=== PATIENT | female | born 1965 | race Caucasian/White ===

== ENCOUNTER 2019-03-14 19:20 | Emergency (ER) | payer OTHER ==
[~2019-03-14] VITALS: Ht 160 cm; Wt 70.3 kg
[2019-03-14 20:00] VITALS: BP 140/81; Ht 160 cm; Wt 70.3 kg
== END 2019-03-14 20:59 | disposition home or self-care (01) ==
LOC: ED 19:20
DX: J40 Bronchitis, not specified as acute or chronic (principal); I10 Essential (primary) hypertension

== ENCOUNTER 2019-12-17 01:00 | Inpatient (IN) | payer OTHER ==
[~2019-12-17] VITALS: Ht 154.9 cm; Wt 64.5 kg
[2019-12-17 01:10] VITALS: Ht 154.9 cm; Wt 64.5 kg
[2019-12-17 02:18] LABS: BILIRUBIN TOTAL 0.23 mg/dL (0.20-1.00); CALCIUM 8.4 mg/dL (8.5-10.1); CARBON DIOXIDE 22.7 mmol/L (21-32); FREE T4 0.75 ng/dL (0.76-1.46); MAGNESIUM 1.8 mg/dL (1.8-2.4); TOTAL PROTEIN, SERUM 7.2 g/dL (6.4-8.2)
[2019-12-17 02:19] LABS: ALBUMIN 3.1 g/dL (3.4-5.0)
[2019-12-17 02:24] LABS: BASOPHIL % 0.9 % (0-2); PLATELET COUNT 228 x10^3mcL (130-400); RED CELL DISTRIBUTION WIDTH 14.5 % (11.5-14.5)
[2019-12-17] MEDS ORDERED: GLIPIZIDE XL2.5 M1 (03:37)
[2019-12-17] MEDS ORDERED: MEDI-FIRST ASP325 MG (03:37)
[2019-12-17] MEDS ORDERED: ADALAT CC90 MG (03:39)
[2019-12-17] MEDS ORDERED: METOPROLOL SUCC50 M2 (03:39)
[2019-12-17] MEDS ORDERED: COZ50 (03:40)
[2019-12-17] MEDS ORDERED: FISH OIL CONC1000 M1 (03:42)
[2019-12-17] MEDS ORDERED: LIPOFEN150 MG (03:42)
[2019-12-17] MEDS ORDERED: HUMULIN R100 U/1 M1 SC (03:47)
[2019-12-17 04:32] VITALS: BP 144/75
[2019-12-17 06:06] LABS: microscopic required? YES; urine erythrocyte 1+ (NEGATIVE)
[2019-12-17 08:22] VITALS: BP 151/88
[2019-12-17 14:03] VITALS: BP 152/80
[2019-12-17 16:04] VITALS: BP 164/74
[2019-12-17 17:10] VITALS: BP 150/82
[2019-12-17 20:53] VITALS: BP 167/82
[2019-12-18] VITALS (7 sets, daily range): BP systolic 124–190; BP diastolic 72–90
[2019-12-18 06:50] LABS: BASOPHIL % 1.3 % (0-2); PLATELET COUNT 195 x10^3mcL (130-400)
[2019-12-18 06:53] LABS: CALCIUM 8.4 mg/dL (8.5-10.1); CARBON DIOXIDE 22.3 mmol/L (21-32); MAGNESIUM 1.8 mg/dL (1.8-2.4); PHOSPHOROUS 4.7 mg/dL (2.5-4.9); POTASSIUM SERUM 4.9 mmol/L (3.5-5.1)
[2019-12-18 06:54] LABS: CHOLESTEROL/HDL RATIO 5.1; CREATININE SERUM 4.5 mg/dL (0.6-1.0)
[2019-12-18 07:06] LABS: RED CELL DISTRIBUTION WIDTH 14.7 % (11.5-14.5)
[2019-12-18 07:28] LABS: IRON 67 ug/dL (50-170)
[2019-12-18 07:32] LABS: TOTAL IRON BINDING CAPACITY 236 ug/dL (250-450)
[2019-12-18] MEDS ORDERED: SYN5 PO (12:06)
[2019-12-18] MEDS ORDERED: LEVO-T50 MCG PO (18:02)
== END 2019-12-18 19:15 | disposition home or self-care (01) | DRG 199 ==
LOC: ED 01:00 → DU 03:10
PROVIDERS: Emergency Medicine; Internal Medicine; ADMIT Internal Medicine; ATTEND Internal Medicine
DX: I16.0 Hypertensive urgency (principal); N17.9 Acute kidney failure, unspecified; E11.22 Type 2 diabetes mellitus with diabetic chronic kidney disease; E87.1 Hypo-osmolality and hyponatremia; I12.9 Hypertensive chronic kidney disease with stage 1 through stage 4 chronic kidney disease, or unspecified chronic kidney disease; Z20.828 Contact with and (suspected) exposure to other viral communicable diseases; E78.00 Pure hypercholesterolemia, unspecified; E03.9 Hypothyroidism, unspecified; E66.9 Obesity, unspecified; Z71.3 Dietary counseling and surveillance; Z68.27 Body mass index [BMI] 27.0-27.9, adult; N18.9 Chronic kidney disease, unspecified; D63.1 Anemia in chronic kidney disease
CPT/HCPCS: 82962; 84439; G0378; J2270; J7030; Q0092

== ENCOUNTER 2020-03-14 08:54 | Inpatient (IN) | payer OTHER, SELFPAY ==
[~2020-03-14] VITALS: Ht 154.9 cm; Wt 63.5 kg
[~2020-03-14 08:54] MED LIST: ADALAT CC90 MG; COZ50; FISH OIL CONC1000 M1; GLIPIZIDE XL2.5 M1; HUMULIN R100 U/1 M1 SC; LEVO-T50 MCG PO; LIPOFEN150 MG; MEDI-FIRST ASP325 MG; METOPROLOL SUCC50 M2; SYN5 PO
[2020-03-14 09:10] VITALS: Ht 154.9 cm; Wt 63.5 kg
--- NOTE | 2020-03-14 09:13 | NUR ---
PT ARRIVES ALERT AND ORIENTED WITHORLQ ABD PAIN 10/27. TESTED COVID + 6 DAYS AGO AND HAS BEEN HAVING INCREASED SOB. PT PLACED ON N/C 02 2L AND 02 SAT INCREASE FROM 91 TO 95%. NO R DISTRESS NOTED AND VSS. AWAITING MD ALFARO
--- NOTE | 2020-03-14 09:42 | NUR ---
PT MEDICATED PER EMAR.
--- NOTE | 2020-03-14 10:17 | NUR ---
INFORMED MD SAWYER OF PT 10/27 RLQ PAIN
[2020-03-14 10:28] LABS: UA SPECIFIC GRAVITY 1.025 (1.005-1.035); microscopic required? YES; urine erythrocyte 2+ (NEGATIVE)
[2020-03-14 10:31] LABS: BASOPHIL % 0.3 % (0.2-1.3); PLATELET COUNT 198 x10^3mcL (179-408); RED CELL DISTRIBUTION WIDTH 13.9 % (12.3-17.7)
--- NOTE | 2020-03-14 10:34 | NUR ---
PER MICRO, THE BLOOD CULTURES DRAWN AND SENT TO LAB WERE DRAWN INCORRECTLY, PRIMARY RN LOUANN AND PIPING MANAGER KOLE MADE AWARE THAT NEW BLOOD CULTURES NEED TO BE DRAWN USING APPROPRIATE TUBES. KOLE VERBALIZED UNDERSTANDING, STS SHE WILL REDRAWN PT'S BLOOD CULTURES.
[2020-03-14 10:47] LABS: BILIRUBIN TOTAL 0.2 mg/dL (0.20-1.00); C REACTIVE PROTEIN 11.5 mg/dL (<=0.9); CALCIUM 8.1 mg/dL (8.5-10.1); CARBON DIOXIDE 13.6 mmol/L (21-32); POTASSIUM SERUM 5.3 mmol/L (3.5-5.1)
[2020-03-14 10:55] LABS: ALBUMIN 2.7 g/dL (3.4-5.0)
[2020-03-14 10:56] LABS: CREATININE SERUM 5.9 mg/dL (0.6-1.0)
--- NOTE | 2020-03-14 11:48 | NUR ---
PT ASSISTED TO RESTROOM. PT REPORTS DIARRHEA
[2020-03-14] MEDS ORDERED: JULUCA 50-25 M1 EACH PO (11:51)
[2020-03-14 12:35] VITALS: BP 103/56
--- NOTE | 2020-03-14 14:05 | NUR ---
PAGED MD ESPOSITO
--- NOTE | 2020-03-14 14:08 | NUR ---
PT REPORTING ANXIETY AND NOTED SHAKINESS. EDUCATED ON DEEP BREATHING AND GUIDED IMAGERY. VERBALIZED UNDERSTANDING
--- NOTE | 2020-03-14 15:50 | NUR ---
PT REPORTING RLQ PAIN 10/10 RADIATING TO R LEG.
--- NOTE | 2020-03-14 16:08 | NUR ---
VERBAL ORDER NON-CONTRAST ABD CT SCAN AND 4MG MORPHINE Q4H IVP
--- NOTE | 2020-03-14 16:08 | NUR ---
MD ESPOSITO AT BEDSIDE
--- NOTE | 2020-03-14 16:31 | NUR ---
PT TO CT VIA NEVAEH
--- NOTE | 2020-03-14 16:35 | NUR ---
SPOKE TO DR BETANCOURT WHO CALLED FOR AN UPDATE. REMDESIVIR WILL BE CANCELLED D/T PT ABNORMAL KIDNEY FUNCTION. NO FURTHER ORDERS AT THIS TIME
--- NOTE | 2020-03-14 19:07 | NUR ---
REPORT GIVEN TO ROSS HERNANDEZ TO TRANSPORT UP
[2020-03-14 19:44] VITALS: BP 98/52
[2020-03-14 20:18] VITALS: BP 117/61
--- NOTE | 2020-03-14 20:39 | NUR ---
RECEVIED PT FROM ER, PT ADMIT FOR COVID POSITIVE, HYPONATREMIA, RENAL FAILURE. PT IS A/O X4, VERBAL RESPONSIVE. LUNG SOUND DIM OSCAR, DENY ANY SOB. PT IS ON 3L/MIN O2 VIA NC. PO2 98%. PT IS ON TELE 63, NSR, DENY ANY CHEST PAIN OR DISCOMFORT, BOWEL SOUND PRESENT ALL 4 QUADRANTS, NO DISTENTION, NO TENDER. PEDLA PULSE PRESENT BOTH FEET, NO EDEMA, IV AT LEFT AC, NO LEAKING, NO INFILTRATION. ALL ADLS ASSIST, ALL NEED MET, CALL LIGHT IN REACH, WILL CONTINUE TO MONITOR.
[2020-03-15] VITALS (7 sets, daily range): BP systolic 112–144; BP diastolic 65–82
--- NOTE | 2020-03-15 00:22 | NUR ---
PT C/O PAIN TO BLE, PAIN MEDICATION ADMINISTERED. PT IS RESTING IN BED AWAKE AND ALERT. BREATHING REMAINS EVEN AND UL, NO SOB NOTED. REMAINS IN STABLE CONDITION. BED IN LOWEST POSITION. CALL LIGHT IS W/IN REACH. WILL CONTINUE TO MONITOR.
--- NOTE | 2020-03-15 06:38 | NUR ---
PT IS RESTING IN BED WITH EYES CLOSED BUT EASY TO AROUSE. BREATHING REMAINS EVEN AND UL ON 3L NC, NO SOB NOTED. REMAINS IN STABLE CONDITION. NO SIGNIFICANT CHANGES AT THIS TIME. ALL NEEDS HAVE BEEN MET. BED IN LOWEST POSITION. CALL LIGHT IS W/IN REACH. WILL ENDORSE CARE TO DAY SHIFT NURSE.
--- NOTE | 2020-03-15 07:28 | NUR ---
RECIEVED PT FROM MACHINE PACKAGING TECHNICIAN NURSE. TELE #63, SR. PT IS A/O X4, FAROESE SPEAKING ONLY. BREATHING E/U ON 3 L NC. GEN WEAKNESS, BUT PT IS AMBULAOTRY. PT IS TO RECIEVE CONVALESCENT PLASMA TODAY. SKIN INTACT, DENIES PAIN/SOB AT THIS TIME. IV TO LAC PATENT, CDI. BED IN LOWEST POSITION, CALL LIGHT IN REACH.
[2020-03-15 07:55] LABS: BILIRUBIN TOTAL 0.14 mg/dL (0.20-1.00); C REACTIVE PROTEIN 11.5 mg/dL (<=0.9); CALCIUM 8.1 mg/dL (8.5-10.1); CARBON DIOXIDE 14.2 mmol/L (21-32); MAGNESIUM 1.9 mg/dL (1.8-2.4); POTASSIUM SERUM 5.5 mmol/L (3.5-5.1); TOTAL PROTEIN, SERUM 6.5 g/dL (6.4-8.2)
[2020-03-15 07:57] LABS: ALBUMIN 2.4 g/dL (3.4-5.0); CREATININE SERUM 5.9 mg/dL (0.6-1.0)
[2020-03-15 08:19] LABS: BASOPHIL % 0.2 % (0.2-1.3); PLATELET COUNT 230 x10^3mcL (179-408); RED CELL DISTRIBUTION WIDTH 13.9 % (12.3-17.7)
--- NOTE | 2020-03-15 09:49 | NUR ---
OBTAINED SIGNED CONSENT FOR CONVALESCENT PLASMA INFUSION W/ JESUS PRIETO AT BEDSIDE FOR TRANSLATION.
--- NOTE | 2020-03-15 12:37 | NUR ---
CHECKED BS, WAS 113, NO INSULIN COVERAGE NEEDED. PT SITTING UP, A/OX4, BREATHING EVEN/UNLABORED ON 3 L NC. IN NO ACUTE RESP DISTRESS. PT REPORTS NO PAIN/SOB AT THIS TIME. NO FURTHER CONCERNS VOICED. BED IN LOWEST POSITION, CALL LIGHT IN REACH.
--- NOTE | 2020-03-15 14:11 | NUR ---
INITIATED CONVALESCENT PLASMA INFUSION AT 1330, 60ML/HR. PRE-INFUSION VS STABLE. PT INSTRUCTED TO LET NURSE KNOW OF ANY S/S OF TRANSFUSION REACTION. PT VERBALIZED UNDERSTANDING. 15 MIN VS STABLE. IV TO LFA INFILTRATED, D/C'D, TIP INTACT, NEW IV INSERTED 22G TO RFA. PLASMA INFUSION STARTED AGAIN AT 150ML/HR. PT INSTRUCTED AGAIN TO PRESS CALL LIGHT IMMEDIATELYIF EXPERIENCING SIGNS OF TRANSFUSION REACTION. BED IN LOWEST POSITION, CALL LIGHT IN REACH.
[2020-03-15 14:56] LABS: rbc morphology (normal/abnorm) ABNORMAL (NORMAL)
[2020-03-15 16:02] LABS: CALCIUM 7.9 mg/dL (8.5-10.1); CARBON DIOXIDE 13.5 mmol/L (21-32)
[2020-03-15 16:10] LABS: CREATININE SERUM 5.9 mg/dL (0.6-1.0); POTASSIUM SERUM 5.6 mmol/L (3.5-5.1)
--- NOTE | 2020-03-15 18:42 | NUR ---
P SITTING UP IN BED, EATING DINNER. A/O X4, BREAHTING E/U ON 3 L NC. IN NO ACUTE RESP DISTRESS. PT REPORTS NO PAIN/SOB AT THIS TIME. IV TO RFA PATENT, INFUSING ZITHROMAX DOSE PER EMAR. NO FURTHER CONCERNS VOICED AT THIS TIME. BED IN LOWEST POSITION, CALL LIGHT IN REACH.
--- NOTE | 2020-03-15 20:14 | NUR ---
PT AWAKE, ALERT AND ORIENTED X4, ABLE TO VERBALIZE NEEDS, ON O2 AT 3L/MIN SATING AT 95%, DIMINISHED LUNGS SOUNDS AT BASE, NO SOB NOTED, DENIES PAIN AT THIS TIME, TELE #63 WTIH SINUS RHYTHM, ABLE TO AMBULATE, USES THE BATHROOM FOR BB, SKIN INTACT, NO SKIN BREAKDOWN NOTED, HAS HEPLOCK TO RFA WITH 22G, NO S/S OF INFILTRATION NOTED AT THIS TIME, ALL NEEDS ATTENDED PROMPTLY, CALL LIGHT IN REACH, WILL CONTINUE TO MONITER.
--- NOTE | 2020-03-16 03:26 | NUR ---
PT SLEEPING AT THIS TIME, NO SOB, NO RESPIRATORY DISTRESS NOTED, IN NO ACUTE DISTRESS, CALL LIGHT IN REACH.
[2020-03-16 04:45] VITALS: BP 127/71
--- NOTE | 2020-03-16 05:41 | NUR ---
PT SLEEPING, NO COMPAINTS OF PAIN, SO SOB NOTED, IV INFUSING WELL, NO S/S OF INFILTRATION NOTED, NO ACUTE DISTRESS AT THIS TIME, CALL LIGHT IN REACH.
[2020-03-16 07:36] LABS: PLATELET COUNT 250 x10^3mcL (179-408)
[2020-03-16 07:41] LABS: IRON 25 ug/dL (50-170); TOTAL IRON BINDING CAPACITY 140 ug/dL (250-450)
--- NOTE | 2020-03-16 07:48 | NUR ---
RECEIVED PT FROM RESEARCH PHYSIOLOGIST RN. SEEN PT AWAKE, ALERT, AND VERBALLY RESPONSIVE IN BED. PT IS ON TELE MONITOR #63 WITH SINUS RHYTHM. PULSES ARE PRESENT AND NO EDEMA NOTED. DIMINISHED LUNG SOUNDS AT THE BASES WITH 3L/MIN O2 RECEIVING WITH NC. BOWEL SOUNDS PRESENT ON ALL QUADRANTS. PT IS AMBULATORY. SKIN INTACT WARM AND DRY TO TOUCH. PT DENIES ANY PAIN AT THIS TIME. PT DENIES ANY CHEST PAIN OR ANY SHORTNESS OF BREATH. IV IS ON RIGHT FOREARM 22 GAUGE WITH NA BICARB RUNNING AT 100ML/HR. IV IS INTACT, PATENT, AND DRY DRESSING IN PLACE AND FLUSHES WELL WITH GOOD BLOOD RETURN OBSERVED.
[2020-03-16 08:03] LABS: BILIRUBIN TOTAL 0.1 mg/dL (0.20-1.00); CALCIUM 7.5 mg/dL (8.5-10.1); CARBON DIOXIDE 18.9 mmol/L (21-32); POTASSIUM SERUM 4.5 mmol/L (3.5-5.1)
[2020-03-16 08:08] LABS: ALBUMIN 2.3 g/dL (3.4-5.0); CREATININE SERUM 5.4 mg/dL (0.6-1.0); TOTAL PROTEIN, SERUM 6.1 g/dL (6.4-8.2)
[2020-03-16 08:26] VITALS: BP 136/71
--- NOTE | 2020-03-16 11:12 | NUR ---
SPOKE WITH DR. ESPOSITO AND REPORTED PT'S PHORPHOROUS LEVEL AT 6.4. DR. ESPOSITO STATED IT IS HIGH DUE TO RENAL FAILURE. WILL CONTINUE TO MONITOR PT AT THIS TIME. NO NEW ORDERS NOTED AT THIS TIME.
[2020-03-16 12:11] VITALS: BP 144/79
[2020-03-16 12:29] LABS: MONOCYTE 5 % (0-7); SEGMENTED NEUTROPHILS 82 % (37-75); rbc morphology (normal/abnorm) NORMAL (NORMAL)
--- NOTE | 2020-03-16 13:34 | NUR ---
SPOKE WITH DR. CAMPBELL, UPDATED ON PT'S CONDITION. PER DR CAMPBELL, NO NEED FOR DIALYSIS AT THIS TIME, PT IS OKAY TO D/C FROM HIS STANDPOINT AND FOLLOW UP OUTPATIENT.
[2020-03-16 15:48] VITALS: BP 122/69
--- NOTE | 2020-03-16 19:03 | NUR ---
PT IS AWAKE, ALERT, ORIENTED AND VERBALLY RESPONSIVE, ALL NEEDS ARE ATTENDED AT THIS TIME AND BED AT LOWEST POSITION AND CALL LIGHT PROVIDED WITHIN REACH. WILL GIVE REPORT TO THE MAGAZINE PUBLISHER NURSE.
[2020-03-16 21:00] VITALS: BP 126/69
--- NOTE | 2020-03-16 21:45 | NUR ---
PT IS AWAKE/ALERT, GCS 15. BREATHING E/U AT 2LPM O2 VIA NC WITH SPO2 >93%. PT STILL HAS C/O ABDOMINAL PAIN AND TYLENOL 650MG WAS GIVEN. ALL VS WDL AND NSR ON TELE. CALL LIGHT WITHIN REACH AND BED AT LOW POSITION. IV PATENT RUNNING IVF ORDERED. WILL CONTINUE TO MONITOR THE PT.
[2020-03-17 05:55] VITALS: BP 126/75
--- NOTE | 2020-03-17 05:59 | NUR ---
PT IS AWAKE/ALERT, GCS 15. NO DISTRESS NOTED AT 2L OXYGEN VIA NC, WITH SPO2 >96%. ALL VS WDL, NSR ON TELE. SKKIN INTACT AND IV PATENT WITH IVF RUNNING ORDERED. NO ACUTE EVENTS OVERNIGHT. CALL LIGHT WITHIN REACH AND BED AT LOW POSITION. ALL NEEDS WERE MET.
[2020-03-17 07:26] LABS: BASOPHIL % 0.3 % (0.2-1.3); PLATELET COUNT 318 x10^3mcL (179-408); RED CELL DISTRIBUTION WIDTH 14.1 % (12.3-17.7)
[2020-03-17 08:20] LABS: BILIRUBIN TOTAL 0.17 mg/dL (0.20-1.00); CALCIUM 7.9 mg/dL (8.5-10.1); CARBON DIOXIDE 24.6 mmol/L (21-32); POTASSIUM SERUM 3.8 mmol/L (3.5-5.1); TOTAL PROTEIN, SERUM 6.5 g/dL (6.4-8.2)
[2020-03-17 08:22] LABS: ALBUMIN 2.3 g/dL (3.4-5.0); CREATININE SERUM 4.7 mg/dL (0.6-1.0)
--- NOTE | 2020-03-17 08:33 | NUR ---
PT IS ALERT AND ORIENTED X4 LUNCG DIMINISHED AT BASES, CTA UPPER. PT REPORTS MILD COUGH LAS NIGHT. ABD SOFT AND NONTENDER WITH BS PRESENT X4. NO SOB NOTED IVF NABICARB INFUSING, PLAN OF CARE DISCUSSED WITH PT. WILL CONTINUE TO MONITOR.
[2020-03-17 09:06] VITALS: BP 146/78
[2020-03-17 12:08] VITALS: BP 149/79
--- NOTE | 2020-03-17 14:13 | NUR ---
REVIEWED LAB RESULTS WITH DR ESPOSITO WITH NO NEW ORDER RECEIVED.
[2020-03-17 17:10] VITALS: BP 155/64
--- NOTE | 2020-03-17 18:32 | NUR ---
PT SITTING UP BY THE BEDSIDE. PT AMBULATORY AD JAM TO BATHROOM/ STEADY GAIT. DAUGHTER CALLED AND WAS UPDATED ABOUT PT'S STATUS. PT DENIES ANY PAIN OR DISCOMFORT AT THIS TIME. SAFETY MAINTAINED. CALL LIGHT IN REACH.
--- NOTE | 2020-03-17 19:51 | NUR ---
PT AAOX4 SITTING UPRIGHT IN BED WATCHING TV. TELEMONITOR IN USE NSR NOTED. PULSES PRESENT. NO EDEMA NOTED. LUNG SOUNDS DIMINISHED. SATS WNL. BOWEL SOUNDS PRESENT. LAST BM 03/16. VOIDS WITHOUT DIFFICULTY. GENERALIZED WEAKNESS NOTED. SKIN INTACT. C/O ABDOMINAL PAIN; WILL ADDRESS NEEDS. RGA 22 G CDI; PATENT. SAFETY MAINTAINED. BED IN LOWEST POSITION. CALL JOSUE WITHIN REACH. BEDSIDE TABLE NEAR. WILL CONTINUE TO MONITOR.
[2020-03-17 21:10] VITALS: BP 156/75
--- NOTE | 2020-03-18 00:24 | NUR ---
PT RESTING COMFORTABLY. TOLERATED MEDS WELL. NO DISTRESS NOTED. NO SOB NOTED. SAFETY MAINTAINED. WILL CONTINUE TO MONITOR.
[2020-03-18 05:16] VITALS: BP 167/78
--- NOTE | 2020-03-18 05:26 | NUR ---
PT RESTED WELL THROUGHOUT OF THE NIGHT. C/O PAIN X 1 AND RESOLVED WITH IV PAIN MEDS. IV SITE CDI;PATENT/SALINE LOCKED. SAFETY MAINTAINED. TOLERATED PM MEDS WELL. WILL CONTINUE TO MONITOR.
--- NOTE | 2020-03-18 07:53 | NUR ---
RECEIVED REPORT FROM DIVERSITY INTERN NURSE. PATIENT IS ON DROPLET FOR COVID (+). A/O X 4 IN NO APPARENT DISTRESS AND DENIES ANY PAIN AT THIS TIME. SL RFA CDI AND PATENT. TELE 63 . ALL QUESTIONS AND CONCERNS WERE ADDRESSED. BED LOCKED, IN LOWEST POSITION, BED RAILS UP X 2, AND CALL LIGHT WITHIN REACH.
[2020-03-18 08:08] VITALS: BP 178/84
[2020-03-18 08:52] LABS: PLATELET COUNT 308 x10^3mcL (179-408); RED CELL DISTRIBUTION WIDTH 14.3 % (12.3-17.7)
[2020-03-18 08:58] LABS: BILIRUBIN TOTAL 0.2 mg/dL (0.20-1.00); CALCIUM 7.8 mg/dL (8.5-10.1); CREATININE SERUM 3.9 mg/dL (0.6-1.0); POTASSIUM SERUM 4.2 mmol/L (3.5-5.1)
[2020-03-18 08:59] LABS: ALBUMIN 2.2 g/dL (3.4-5.0)
--- NOTE | 2020-03-18 11:00 | NUR ---
RFA IV DC, CATHETER INRACT. NEW IV INSERTED 22G LFA, CDI AND PATENT. PATIENT DENIES ANY PAIN. IN NO APPARENT DISTRESS. ALL SAFETY MEASURES IN PLACE. BED IN LOCKED, LOWEST POSITION, ARM RAILS RAISED X 2, CALL LIGHT WITHIN REACH. ALL QUESTIONS AND CONCERNS WERE ADDRESSED AT THIS TIME.
[2020-03-18 11:58] LABS: BAND NEUTROPHIL 1 % (0-10); MONOCYTE 8 % (0-7); SEGMENTED NEUTROPHILS 70 % (37-75)
[2020-03-18 11:59] LABS: rbc morphology (normal/abnorm) NORMAL (NORMAL)
[2020-03-18 12:26] VITALS: BP 135/78
--- NOTE | 2020-03-18 12:48 | NUR ---
Initial Nutrition Assessment: Dx: COVID+, hyponatremia, renal failure, HIV+ (per H&P) PMHx: HTN, hyperlipidemia, DM, CKD, hypothyroidism, HIV x past 23 years PSHx: None Labs: (03/17) Na 141, K 3.8, Glu 86, BUN 89.0, Cr 4.7, A1c 7.1 H, H/H 8.0/23. Meds: Decadron, D50%, Eliquis, Ferrlecit, Humulin R, Morphine sulfate, Phoslo, Procrit, Rocephin, Sodium bicarb, Synthroid, Tylenol, Zithromax, Zofran Diet: [facility] PO intake since admission: (03/15) B: 100%, L: 100%, (03/16) B: 100%, L: 100%, D: 100%, (03/17) B: 100%; 100% x 6 meals. This provides ~1480 kcal and 86 gm protein, which meets > 100% estimated kcal needs and > 100% estimated protein needs; adequate. Ht: 154.94 cm / 61 in / 5'1" Wt: 63.503 kg / 140# BMI: 26.5 kg/m2, normal for age IBW: 105# / 48 kg %IBW: 133% AdjBW: 114# / 52 kg UBW: Unknown Age: 54 Food Allergies: NKFA Skin: Intact Doug: 23 Edema: None noted GI: BS present Last BM: 03/16/20 Per H&P, Pt is a 54 y/o F who presents to the ER with 6 days of fever, chills, cough with worsening SOB. She lives alone and has had no sick contacts. She follows with PMD in [place] for her HIV. She does not know her CD4 count, but she has had no opportunistic infections. She tested positive for COVID on 03/08/20. She has nausea, RLQ abdominal RLQ abdominal pain and leg pain. No vomiting, diarrhea, urinary symptoms. In the ER, she was afebrile, CXR showed peripheral patchy infiltrates. Pt received IV Decadron and was admitted, will be on Decadron for 10 days, plan for convalescent plasma transfusion. Pt is not a candidate for Remdesivir due to RAN/CKD. RDN Note (03/18/20): Per Physician Progress Note, Pt is feeling better, will continues on contact and droplet precautions due to COVID+ diagnosis. Pt is on lokelma and phoslo for elevated potassium and phosphorous labs. Pt to continue on home meds - Lantus and levothyroxine. Pt has an excellent appetite and PO intakes, 100% intakes x all meals. BG controlled. Problem with: N/V/D/C: None Problems with: Chewing: None Swallowing: None Current appetite: Excellent Recent wt change: None Vitamin/Supplement use: None Special diet at home: Regular Physical activity: None Nutrition education given (specify specific nutrition education and handout given): N/A Food-drug interactions? Education given? N/A Estimated Nutritional Needs Based on actual body weight of 64 kg. Energy: 9805-2955 kcal/d (30-35 kcal/kg for HIV, COVID) Protein: 64-77 gm/d (1-1.2 gm/kg for HIV, COVID) Fluid: 7107-2005 mL/d (1 mL/kcal) or per MD. Nutrition Diagnosis 1. Increased nutrient needs related to viral diseases as evidenced by Pt with Dx HIV+ and COVID+. Intervention/RDN Recommendation(s): 1. Continue on CCHO diet as tolerated. Monitor/Evaluate Goal: Intake via PO intakes to meet at least 75% of estimated needs with acceptable tolerance within 5-7 days. Monitor: PO intakes and/or nutrition support tolerance, Labs, GI function, Skin integrity, Weights. F/U in 5-7 days as low risk (03/23-03/25)
--- NOTE | 2020-03-18 12:49 | NUR ---
Intervention/RDN Recommendation(s): 1. Continue on CCHO diet as tolerated.
--- NOTE | 2020-03-18 12:57 | NUR ---
REPORTED H/H 10/[address] ESPOSITO AWAITING ORDER FOR [address] ESPOSITO MADE AWARE OF DDIMER TRENDING UP 4400, DR. ESPOSITO STATED OK TO HOLD PO ELIQUIS FOR TODAY. ALL QUESTIONS AND CONCERNS ADDRESSED. AWAITING ORDERS.
--- NOTE | 2020-03-18 13:54 | NUR ---
DR ESPOSITO MADE AWARE OF PT H/H 6.11/07. DR ESPOSITO GAVE VERBAL ORDER FOR TYPE AND SCREEN, TRANSFUSE 1 UNIT OF PRBC, CONFIRM SIGNED CONSENT, AND TRANSFUSE PT SLOWLY @60 ML/HR FOR 15 MIN, THEN INCREASE TO 100 TO 250 ML/HR TOLERATED. ORDER CONFIRMED AND READBACK. ALL QUESTIONS AND CONCERNS ADDRESSED.
[2020-03-18 16:51] VITALS: BP 138/75
--- NOTE | 2020-03-18 19:30 | NUR ---
PATIENT REMAINED STABLE THROUGHOUT SHIFT. CONTINUES TO BE ON RA 91-98 SPO2. BED IN LOCKED, LOWEST POSITION, BED RAILS RAISED X 2, AND CALL LIGHT WITHIN REACH. REPORT GIVEN TO TRAP SETTER RN. ALL CARE HAS BEEN ENDORSED. ALL QUESTIONS ANC CONCERNS WERE ADDRESSED AT THIS TIME.
--- NOTE | 2020-03-18 20:00 | NUR ---
RECEIVED PT IN BED. ALERT AND ORIENTED. ON ROOM AIR. NO ACUTE DISTRESS. RESPIRATIONS EVEN AND UNLABORED. CALL LIGHT WITHIN REACH. SIDE RAILS UP X2. BED IN LOWEST POSITION. BRAKES ON.
[2020-03-18 20:51] VITALS: BP 141/73
--- NOTE | 2020-03-18 23:00 | NUR ---
FINISHED TRANSFUSING 1 UNIT PRBC. NO ADVERSE REACTIONS NOTED. VSS. T-98.7 P-80 R-16 BP-136/76 O2-93% ON ROOM AIR. NO ACUTE DISTRESS. RESPIRATIONS EVEN AND UNLABORED. CALL LIGHT WITHIN REACH. SIDE RAILS UP X2. BED IN LOWEST POSITION. BRAKES ON.
--- NOTE | 2020-03-19 02:26 | NUR ---
PT RESTING IN BED. NO ACUTE DISTRESS.
[2020-03-19 04:35] VITALS: BP 135/74
--- NOTE | 2020-03-19 06:35 | NUR ---
PT RESTING IN BED. NO ACUTE DISTRESS. RESPIRATIONS EVEN AND UNLABORED. ALL NEEDS ADDRESSED. CALL LIGHT WITHIN REACH. SIDE RAILS UP X2. BED IN LOWEST POSITION. BRAKES ON.
--- NOTE | 2020-03-19 07:44 | NUR ---
RECEIVED PATIENT REPORT FROM DREDGE CAPTAIN RN. PATIENT ON DROPLET PRECAUTIONS FOR COVID (+). PT A/O X 4 AND IN NAD. DENIES CHEST OR ANY PAIN AT THIS TIME. TELEMONITOR 63 NSR. ON RA 100 SPO2. LFA 22G SL CDI AND PATENT. ALL SAFETY MEASURES IN PLACE. BED LOWEST POSITION, LOCKED, BED RAILS UP X 2, AND CALL LIGHT WITHIN REACH. ALL QUESTIONS AND CONCERNS HAVE BEEN ADDRESSED AT THIS TIME.
[2020-03-19 08:11] LABS: BASOPHIL % 0.2 % (0.2-1.3); PLATELET COUNT 323 x10^3mcL (179-408); RED CELL DISTRIBUTION WIDTH 13.9 % (12.3-17.7)
[2020-03-19 08:39] VITALS: BP 114/60
[2020-03-19 10:29] LABS: BILIRUBIN TOTAL 0.19 mg/dL (0.20-1.00); CALCIUM 8.4 mg/dL (8.5-10.1); CARBON DIOXIDE 22.5 mmol/L (21-32); CREATININE SERUM 3.7 mg/dL (0.6-1.0); MAGNESIUM 1.9 mg/dL (1.8-2.4)
[2020-03-19 10:41] LABS: ALBUMIN 2.1 g/dL (3.4-5.0); TOTAL PROTEIN, SERUM 5.8 g/dL (6.4-8.2)
--- NOTE | 2020-03-19 10:45 | NUR ---
PATIENT IN NAD. NO CHEST OR PAIN NOTED AT THIS TIME. SLEEPING IN MODIFIED FOWLERS POSITION. BED IN LOCKED, LOWEST POSITION, ARM RAILSED RAISED X 2, AND CALL LIGHT WITHIN REACH. ALL CONCERNS WERE ADDRESSED.
[2020-03-19 12:06] VITALS: BP 138/75
--- NOTE | 2020-03-19 12:41 | NUR ---
PATIENT REMAINS STABLE. ON ROOM AIR 96 SPO2. DENIES CHEST OR ANY PAIN AT THIS TIME. IN NAD OR SOB. BED IN LOWEST POSITION, LOCKED, BED RAILS RAISED X2, AND CALL LIGHT WITHIN REACH. ALL QUESTIONS AND CONCERNS WERE ADDRESSED AT THIS TIME.
[2020-03-19] MEDS ORDERED: ELIQUIS2.5 MG PO (14:10)
[2020-03-19] MEDS ORDERED: DECADRON6 MG PO (14:11)
[2020-03-19 16:42] VITALS: BP 138/75
[2020-03-19 16:47] VITALS: BP 124/66
--- NOTE | 2020-03-19 17:28 | NUR ---
PATEINT REMAINED STABLE THROUGHOUT SHIFT. CONT TO BE ON RA 96 SPO2. DENIES ANY CHEST OR OTHER PAIN. NO SOB NOTED. GAVE DISCHARGE ORDERS AND INSTRUCTIONS TO PT. PATIENT SIGNED DC ORDERS AND VERBALIZED UNDERSTANDING. ALL QUESTIONS AND CONCERNS ADDRESSED AT THIS TIME. TELE 63 REMOVED AND RETURNED TO TELE MONITOR. ARM BANDS REMOVED. AWAITING FOR TRANSPORTATION.
--- NOTE | 2020-03-19 17:56 | NUR ---
PT LFA 22G SL REMOVED. CATHETER INTACT. CLEAN AND DRY WITH NO EDEMA NOTED. STERILE GAUZE WITH TAPE APPLIED WITH PRESSURE. NO SIGNS OF BLEEDING. PT DENIES ANY CHEST PAIN. IN NAD. WHEELED OUT Y DRIVER MANAGER TO [facility] WHERE FAMILY AWAITS.
== END 2020-03-19 17:55 | disposition home or self-care (01) | DRG 890 ==
LOC: ED 08:54 → DU 11:31
PROVIDERS: Emergency Medicine; Internal Medicine Nephrology; ADMIT Internal Medicine; ATTEND Internal Medicine
PROC: XW033E5 Introduction of Remdesivir Anti-infective into Peripheral Vein, Percutaneous Approach, New Technology Group 5 (ICD-10-PCS; 2020-03-14)
PROC: XW13325 Transfusion of Convalescent Plasma (Nonautologous) into Peripheral Vein, Percutaneous Approach, New Technology Group 5 (ICD-10-PCS; principal; 2020-03-15)
PROC: 30233N1 Transfusion of Nonautologous Red Blood Cells into Peripheral Vein, Percutaneous Approach (ICD-10-PCS; 2020-03-18)
DX: U07.1 COVID-19 (principal); B20 Human immunodeficiency virus [HIV] disease; J96.01 Acute respiratory failure with hypoxia; N18.6 End stage renal disease; N17.9 Acute kidney failure, unspecified; D68.9 Coagulation defect, unspecified; E11.21 Type 2 diabetes mellitus with diabetic nephropathy; E11.22 Type 2 diabetes mellitus with diabetic chronic kidney disease; E11.65 Type 2 diabetes mellitus with hyperglycemia; E87.1 Hypo-osmolality and hyponatremia; E87.2 Acidosis; J12.82 Pneumonia due to coronavirus disease 2019; E03.9 Hypothyroidism, unspecified; E78.5 Hyperlipidemia, unspecified; E86.0 Dehydration; I12.9 Hypertensive chronic kidney disease with stage 1 through stage 4 chronic kidney disease, or unspecified chronic kidney disease; D64.9 Anemia, unspecified; E87.5 Hyperkalemia; D63.1 Anemia in chronic kidney disease; Z90.49 Acquired absence of other specified parts of digestive tract; Z79.899 Other long term (current) drug therapy; Z79.891 Long term (current) use of opiate analgesic; Z79.01 Long term (current) use of anticoagulants; Z79.4 Long term (current) use of insulin
CPT/HCPCS: 36600; 82962; 83880; 85378; 87804; G0378; J0456; J0696; J0885-EC; J1100; J1815; J2270; J2916; J3490; J7030; J7040; J7050; J7060; P9016; U0003